=== PATIENT | male | born 1985 | race Hispanic/Latino ===

== ENCOUNTER 2022-09-08 00:22 | Emergency (ER) | payer BC ==
[~2022-09-08] VITALS: Ht 167.6 cm; Wt 89.8 kg
[2022-09-08] MEDS ORDERED: IBUP-2076 PO (03:42)
[2022-09-08 04:00] VITALS: BP 129/74
== END 2022-09-08 04:06 | disposition home or self-care (01) ==
LOC: EDH 00:22
DX: M79.662 Pain in left lower leg (principal); E11.9 Type 2 diabetes mellitus without complications; F17.200 Nicotine dependence, unspecified, uncomplicated; Z86.718 Personal history of other venous thrombosis and embolism; Z86.711 Personal history of pulmonary embolism; Z88.0 Allergy status to penicillin
CPT/HCPCS: 93971

== ENCOUNTER 2025-04-10 21:02 | Emergency (ER) | payer BC, MEDICAID ==
[~2025-04-10] VITALS: Ht 167.6 cm; Wt 83.5 kg
[~2025-04-10 21:02] MED LIST: IBUP-2076 PO
[2025-04-10 21:03] VITALS: TEMP 99.4
[2025-04-10] MEDS: LACTATED RINGERS 1000ML IV STA ×2 (21:38→22:53)
[2025-04-10 21:46] LABS: IMMATURE GRANULOCYTE ABSOLUTE 0.04 K/uL (0-1); NUCLEATED RED BLOOD CELLS 0.0 % (0.0-0.19); PLATELET COUNT (AUTO) 249 K/uL (130-400); RED BLOOD CELL COUNT(AUTO) 5.31 MIL/uL (4.50-6.20); RED CELL DISTRIBUTION WIDTH 12.5 % (11.0-15.5); WHITE BLOOD COUNT (AUTO) 7.0 K/uL (4.8-10.8)
[2025-04-10 21:51] LABS: APPEARANCE,URINE CLEAR (CLEAR); GLUCOSE, URINE (UA) >=1000 mg/dL (NEGATIVE); LEUKOCYTE ESTERASE ,URINE NEGATIVE Leu/uL (NEGATIVE); NITRATE,URINE NEGATIVE (NEGATIVE); OCCULT BLOOD,URINE NEGATIVE (NEGATIVE)
[2025-04-10 21:59] LABS: ADD UA MICROSCOPIC YES
[2025-04-10 22:01] LABS: CREATININE 0.8 mg/dL (0.5-1.3); GLOMERULAR FILTR. RATE CALC 115.0 mL/min (>90); GLUCOSE,RANDOM 221.0 mg/dL (70-105); SODIUM SERUM 136.0 mmol/L (136-145); UREA NITROGEN, BLOOD 15.0 mg/dL (7-18)
[2025-04-10 22:05] LABS: ASPARTATE AMINOTRANSFERASE 16.0 U/L (10-37); TOTAL PROTEIN, SERUM 7.1 g/dL (6.0-8.3)
--- NOTE | 2025-04-10 22:26 | ERN ---
General Chief Complaint: Abdominal Pain Stated Complaint: C/O ABD PAIN W/ NAUSEA,FEVER,HEADACHE ONSET TODAY Time Seen by MD: 21:06 History of Present Illness Initial Comments 39-year-old male with diabetes who drove from [place] to [place] to visit family. He comes into the emergency room with concerns about abdominal pain with nausea as well as a headache and a fever. He measured his temperature at home it was 101. Here in the emergency room it is 99. Patient has normal blood pressure but he is tachycardic. He has no respiratory symptoms no cough. No urinary symptoms no change in bowel habits. Allergies: Coded Allergies: Penicillins (Unverified Allergy, Unknown, 09/08/22) Home Meds Active Scripts Metformin HCl (Metformin HCl ER) 500 Mg Tab.er.24, 1 TAB PO DAILY for 30 Days, #30 TAB 0 Refills Take one tablet at night each day Prov:ANGELINA SIGALA MD 04/10/25 Ibuprofen (Ibuprofen) 400 Mg Tablet, 400 MG PO TIDP PRN for PAIN, #30 TAB Prov:WILL MONTEZ MD 09/08/22 Past Medical History Past Medical History: Diabetes-Type II, High Cholesterol Medical History Other: Diabetes mellitus, history of DVT, history of PE Past Surgical History: Other Surgical History Other: LEFT TESTICLE Family History Family History: CAD, HTN Social History Social History: Smokers, ETOH, Lives with family Constitutional: (+) fever EENTM: (-) eye pain, (-) blurred vision, (-) tearing, (-) double vision, (-) ear pain, (-) ear discharge, (-) nose pain, (-) nose congestion, (-) throat pain, (-) Throat swelling, (-) mouth pain, (-) tooth pain, (-) mouth swelling, (-) other documentation Respiratory: (-) cough, (-) orthopnea, (-) short of breath, (-) stridor, (-) wheezing, (-) other documentation Cardiovascular: (-) chest pain, (-) edema, (-) palpitations, (-) syncope, (-) dyspnea on exertion, (-) other documentation Gastrointestinal/Abdominal: (-) nausea, (-) vomiting, (-) diarrhea, (-) abdominal pain, (-) abdominal distention, (-) constipation, (-) rectal bleeding, (-) dark stool/melena, (-) other documentation Genitourinary: (-) penile discharge, (-) dysuria, (-) frequency, (-) hematuria, (-) pain, (-) other documentation Musculoskeletal: (-) Neck pain, (-) back pain, (-) Flank Pain, (-) joint pain, (-) joint swelling, (-) muscle pain, (-) muscle stiffness, (-) gout, (-) other documentation Neuro: (+) headache Physical Exam General Appearance: (+) mild distress Orientation: (+) alert, (+) oriented x 3 Head/Face Trauma: No Eye: bilateral eye normal inspection, bilateral eye PERRL, bilateral eye EOMI Ear, Nose, Throat: (+) hearing grossly normal, (+) normal ENT inspection, (+) moist mucous membraine Neck: (+) normal inspection, (+) supple, (+) full range of motion Respiratory: (+) chest non-tender, (+) lungs clear, (+) well ventilated Heart: (+) regular, (+) no gallop, (+) murmur Vascular: (+) no edema, (+) normal peripheral pulse, (+) no JVD Gastrointestinal: (+) soft, (+) non-tender, (+) tender Results Laboratory and Microbiology Lab and Micro Result Laboratory Tests Test 04/10/25 21:00 04/10/25 21:26 04/10/25 23:34 Urine Color YELLOW (YELLOW) Urine Appearance CLEAR (CLEAR) Urine pH 6.5 (5.0-8.0) Urine Specific [place] 1.028 (1.001-1.031) Urine Protein NEGATIVE mg/dL (NEGATIVE) Urine Glucose (UA) >=1000 mg/dL (NEGATIVE) H Urine Ketones 5 mg/dL (NEGATIVE) H Urine Occult Blood NEGATIVE (NEGATIVE) Urine Nitrate NEGATIVE (NEGATIVE) Urine Bilirubin NEGATIVE mg/dL (NEGATIVE) Urine Urobilinogen 4.0 mg/dL (0.2-1.0) H Urine Leukocyte Esterase NEGATIVE Alirio/uL Urine RBC 2-5 /HPF (0-1) H Urine WBC 0-1 /HPF (0-1) Urine Bacteria None /HPF (None Seen) White Blood Count 7.0 K/uL (4.8-10.8) Red Blood Count 5.31 MIL/uL (4.50-6.20) Hemoglobin 15.5 g/dL (14.0-18.0) Hematocrit 46.0 % (42-54) Mean Corpuscular Volume 86.6 fL (79-99) Mean Corpuscular Hemoglobin 29.2 pg (27.0-33.0) Mean Corpuscular Hemoglobin Concent 33.7 g/dL (32.0-36.0) Red Cell Distribution Width 12.5 % (11.0-15.5) Platelet Count 249 K/uL (130-400) Mean Platelet Volume 10.2 fL (7.5-10.5) Immature Granulocyte % (Auto) 0.6 % (0-1) Neutrophils (%) (Auto) 84.2 % (40.0-77.0) H Lymphocytes (%) (Auto) 9.0 % (21.0-51.0) L Monocytes (%) (Auto) 6.0 % (3.0-13.0) Eosinophils (%) (Auto) 0.1 % (0.0-8.0) Basophils (%) (Auto) 0.1 % (0.0-5.0) Neutrophils # (Auto) 5.9 K/uL (1.8-7.7) Lymphocytes # (Auto) 0.6 K/uL (1.0-4.8) L Monocytes # (Auto) 0.4 K/uL (0.1-1.0) Eosinophils # (Auto) 0.01 K/uL (0.00-0.70) Basophils # (Auto) 0.01 K/uL (0.00-0.20) Absolute Immature Granulocyte (auto 0.04 K/uL (0-1) Nucleated Red Blood Cells 0.0 % (0.0-0.19) White Cell Morphology Comment CONSISTENT W/DIFF Sodium Level 136 mmol/L (136-145) Potassium Level 3.7 mmol/L (3.5-5.1) Chloride Level 100 mmol/L (101-111) L Carbon Dioxide Level 27 mmol/L (21-32) Blood Urea Nitrogen 15 mg/dL (7-18) Creatinine 0.8 mg/dL (0.5-1.3) Glomerular Filtration Rate Calc 115 mL/min (>90) Random Glucose 221 mg/dL (70-105) H Total Calcium 8.5 mg/dL (8.5-10.1) Total Bilirubin 0.9 mg/dL (0.2-1.0) Aspartate Amino Transf (AST/SGOT) 16 U/L (10-37) Alanine Aminotransferase (ALT/SGPT) 26 U/L (12-78) Alkaline Phosphatase 104 U/L (50-136) Total Protein 7.1 g/dL (6.0-8.3) Albumin 3.9 g/dL (3.5-5.0) Troponin I High Sensitivity 10 ng/L (4-75) MDM MDM: Differential diagnosis: Given the patient's diabetes we have to consider a heart attack, also history of PE so we have to consider that as well. Other causes could be gastroenteritis, urinary tract infection, dehydration, migraine. Rationale: Tests considered and ordered secondary to shared decision making include: Previous outside records reviewed: Old ER visits. Risk of complication and/or morbidity or mortality of patient management: None Medications-Per medication reconciliation Need for hospitalization: Patient does meet criteria for hospitalization. Need for emergency major/minor surgery: No There are no social concerns with this patient. Prescription drug management Prescriptions will include symptomatic care Patient's prior external medical records from other ER visits were reviewed by me as indicated. Prior testing and results from previous visits were reviewed. Prior tests were taken into account with medical decision making and resource utilization, independent historian/historians were used to obtain complete medical history. I independently interpreted the test that were performed, results were reviewed by me and considered findings on radiology if ordered. We will order usual labs and bolused the patient 2 L of fluid. EKG and cardiac enzymes as well. EKGs normal as is his troponin.. Patient does not feel like he is having a pulmonary embolism right now. Patient's abdominal exam is normal. I feel safe discharging him. ED Course Orders Procedure Category Date Status Time Cbc With Differential LAB 04/10/25 Complete 21:25 Comprehensive LAB 04/10/25 Complete Metabolic Panel 21:25 Urinalysis Profile LAB 04/10/25 Complete 21:25 Lactated Ringers PHA 04/10/25 Complete 1000ml (Lactated 21:14 Troponin I High LAB 04/10/25 Complete Sensitivity 22:27 12 Lead Ekg Tracing- EKG 04/10/25 Logged Technical 22:27 Lactated Ringers PHA 04/10/25 Complete 1000ml (Lactated 22:27 Current Medications Medications (Trade) Dose Ordered Sig/Emanuel Route PRN Reason Start Time Stop Time Status Last Admin Dose Admin Lactated Ringer's (Lactated Ringers 1000ml) 1,000 ml BOLUS STAT IV 04/10/25 21:14 04/10/25 21:35 DC 04/10/25 21:38 Lactated Ringer's (Lactated Ringers 1000ml) 1,000 ml BOLUS STAT IV 04/10/25 22:27 04/10/25 22:35 DC 04/10/25 22:53 Vital Signs Date Time Temp Pulse Resp B/P (MAP) Pulse Ox O2 Delivery O2 Flow Rate FiO2 04/10/25 22:53 82 20 113/82 99 Room Air* 0 21 04/10/25 21:03 99.3 101 20 118/76 97 Room Air 04/10/25 21:03 99.3 101 20 118/76 97 Room Air* 0 21 DX & DISP Disposition: Discharge Departure Impression: Primary Impression: Exertional heat stroke Additional Impression: Diabetes type 2 Condition: Stable Scripts Metformin HCl (Metformin HCl ER) 500 Mg Tab.er.24 1 TAB PO DAILY for 30 Days, #30 TAB 0 Refills Take one tablet at night each day Prov: ANGELINA SIGALA MD 04/10/25 Additional Instructions: I feel like your symptoms are all result of dehydration and a mild case of heat stroke. Your symptoms have improved with 2 L of fluid. Your laboratory studies are negative for infection or electrolyte abnormalities. Your abdominal pain is also consistent with dehydration. Please return to the emergency room if you have a return of your symptoms with nausea vomiting and inability to keep any liquids down or stay well hydrated. Referrals: NONE (PCP) ANGELINA SIGALA MD Apr 10, 2025 22:26
[2025-04-10 22:53] VITALS: BP 113/82; PULSE 82; RESP 20; O2SAT 99
[2025-04-10] MEDS ORDERED: METF-526 PO (23:38)
[2025-04-10 23:43] LABS: WBC MORPHOLOGY CONSISTENT W/DIFF
--- NOTE | 2025-04-11 06:49 | EKG ---
[facility] Test Date: 2025-04-10 Test Time: 22:41:52 Pat Name: LORETA PÉREZ Department: ED Room: Gender: Male [employer] Technician: [id number] : 1985 Requested By: ANGELINA SIGALA Order Number: [id number] Reading MD: Measurements Intervals [place] Rate: 78 P: 21 SC: 141 QRS: -34 QRSD: 94 T: -12 QT: 366 QTc: 417 Interpretive Statements Sinus rhythm Left axis deviation No previous ECG available for comparison Please click the below link to view image of tracing.
== END 2025-04-11 00:19 | disposition home or self-care (01) ==
LOC: EDH 21:02
DX: T67.02XA Exertional heatstroke, initial encounter (principal); E11.9 Type 2 diabetes mellitus without complications; E78.00 Pure hypercholesterolemia, unspecified; F17.200 Nicotine dependence, unspecified, uncomplicated; Z79.84 Long term (current) use of oral hypoglycemic drugs; Z86.718 Personal history of other venous thrombosis and embolism; Z86.711 Personal history of pulmonary embolism; Z88.0 Allergy status to penicillin; X58.XXXA Exposure to other specified factors, initial encounter; Y93.89 Activity, other specified; Y92.89 Other specified places as the place of occurrence of the external cause; Y99.8 Other external cause status
CPT/HCPCS: 99284; 84484; 80053; 85025; 81001; 36415; 93005; J7120 ×2